=== PATIENT | male | born 1960 | race African-American/Black ===

== ENCOUNTER 2018-06-05 10:00 | Emergency (ER) | payer SELFPAY ==
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
== END 2018-06-05 13:20 | disposition home or self-care (01) ==
LOC: EDBD 10:00 → ER 10:00
DX: E11.40 Type 2 diabetes mellitus with diabetic neuropathy, unspecified (principal); R60.0 Localized edema
CPT/HCPCS: 82948-90; Z7502; Z7610